=== PATIENT | male | born 1985 | race Caucasian/White ===

== ENCOUNTER 2024-08-05 09:22 | Emergency (ER) | payer MEDICAID, OTHER ==
[~2024-08-05] VITALS: Ht 172.7 cm; Wt 81.9 kg
[2024-08-05] MEDS: TETANUS-DIPTH-ACEL PERTUSSIS 0.5ML SYR Tdap IM ONE (11:23)
[2024-08-05 11:34] VITALS: BP 124/95; PULSE 75; RESP 18; TEMP 98.2; O2SAT 99
== END 2024-08-05 11:43 | disposition home or self-care (01) ==
LOC: ER 09:22
DX: S91.311A Laceration without foreign body, right foot, initial encounter (principal); W18.49XA Other slipping, tripping and stumbling without falling, initial encounter; Y93.89 Activity, other specified; Y92.89 Other specified places as the place of occurrence of the external cause; Y99.8 Other external cause status
CPT/HCPCS: 73630; 90471; 90715